=== PATIENT | male | born 1945 | race Caucasian/White ===

== ENCOUNTER 2016-08-04 15:45 | Emergency (ER) | payer MEDICARE ==
[2016-08-04] MEDS ORDERED: Cyclopentolate 1% OPTH.SOL* 2 ML BTL BOTH EYES ONE (17:10)
[2016-08-04 18:43] VITALS: BP 142/88
--- NOTE | 2016-08-04 21:45 | ED ---
Roxana Hu Erika, scribed for Clarence Torres MD on 08/04/16 at 1821 . Throat Pain/Nasal Congestion - HPI Summary HPI Summary: Patient is a 71-year-old male presenting to the ED with a CC of floaters in his vision starting this morning. Pt reports that he has had 6-7 floaters in his right eye at a time, which at one time looked as if they were breaking down and he had many more smaller floaters. He states he has never had consistent floaters before. He also notes blurred vision in the right eye. He denies visual changes to the left eye, and also denies pain in the right eye or flashing lights in his visual field. Pt does not wear glasses or contacts. Pt does state he recently sustained a minor head injury to right side, but denies headache. He denies Hx diabetes, cardiac disease. FHx diabetes, cardiac disease. - History of Current Complaint Chief Complaint: EDEyeProblem Time Seen by Provider: 08/04/16 17:10 Hx Obtained From: Patient Onset/Duration: Gradual Onset, Lasting Hours, Still Present Severity: Moderate Associated Signs And Symptoms: Positive: Negative Cough: None PMH/Surg Hx/FS Hx/Imm Hx Endocrine/Hematology History: Reports: Other Endocrine/Hematological Disorders - rheumatic fever Denies: Hx Diabetes Cardiovascular History: Denies: Hx Hypertension Infectious Disease History: No Infectious Disease History: Denies: Traveled Outside the [place] in Last 30 Days - Family History Known Family History: Positive: Cardiac Disease, Diabetes - Social History Alcohol Use: None Hx Substance Use: No Substance Use Type: Reports: None Review of Systems Eyes: Other - floaters right eye Positive: Blurred Vision - right eye Negative: Headache All Other Systems Reviewed And Are Negative: Yes Physical Exam - Summary Physical Exam Summary: Constitutional: Comfortable, pleasant, alert HEENT: moist mucosa, DIVINA. No temporal tenderness. No conjunctivitis. Visual acuity performed: right eye 20/70, left eye 20/20, both eyes 20/20 Neck: Soft, supple, no adenopathy, no edema Heart: S1, S2, RRR, no murmurs, rubs, or gallops Lungs: clear, breathing comfortably, no wheezes, no rales Abdomen: Soft, flat, non-tender. Extremities: No edema, calves non-tender Neurological: A&Ox3 Psychological: logical, coherent Triage Information Reviewed: Yes Vital Signs On Initial Exam: Initial Vitals Temp Pulse Resp BP Pulse Ox 98.5 F 69 16 170/107 99 08/04/16 16:11 08/04/16 16:11 08/04/16 16:11 08/04/16 16:11 08/04/16 16:11 Vital Signs Reviewed: Yes Procedures - Procedure Summary Procedure Summary: Cyclo gel administered to the right eye. Right eye is now dilated. No papal edema. No obvious retinal lesions. No hemorrhages. Diagnostics - Vital Signs Vital Signs Temp Pulse Resp BP Pulse Ox 08/04/16 16:11 98.5 F 69 16 170/107 99 - Laboratory Lab Statement: Any lab studies that have been ordered have been reviewed, and results considered in the medical decision making process. Re-Evaluation - Re-Evaluation First Eval Re-Evaluation Time: 18:18 Change: Improved Comment: Performed eye exam at this time. Pt states floaters have decreased gradually since he was initially seen, although he still sees some of the same Second Eval Re-Evaluation Time: 18:34 Comment: Discussed plan for follow up with Dr. Allen EENT Course/Dx - Course Assessment/Plan: He has a clear vision change and we are aggressively looking into this and sending him to ophthalmology first thing in the morning. Dr. Allen kindly agrees to see him in the morning. Pt will remain NPO after midnight. Etiologies include posterior issues such as retinal detachment or vitreous hemorrhage. He does not have any pain to suggest iritis, glaucoma, or corneal abrasion. Pt is quite aware of the plan and agrees wholeheartedly to show up in the morning. - Differential Diagnoses Differential Diagnoses: Abrasion - Diagnoses Provider Diagnoses: Blurred vision, right eye - Provider Notifications Discussed Care of Patient with: Dr. Allen (ophthalmology) at 18:26 - he kindly agrees to see pt in the morning at 8 am. He would like patient to be NPO after midnight in case this turns into a surgical case Discharge - Discharge Plan Condition: Fair Disposition: HOME Patient Education Materials: Blurred Vision (ED), Your Vision (GEN) Referrals: Steve Cardona MD [Primary Care Provider] - Sachin Allen MD [Medical Doctor] - 1 Day The documentation as recorded by the Roxana humphrey Erika accurately reflects the service I personally performed and the decisions made by me, Clarence Torres MD.
== END 2016-08-04 18:41 | disposition home or self-care (01) ==
LOC: ED 15:45
DX: H53.8 Other visual disturbances (principal)
CPT/HCPCS: 99282